=== PATIENT | male | born 1965 | race African-American/Black ===

== ENCOUNTER 2021-06-28 15:55 | Inpatient (IN) | payer OTHER ==
[2021-06-28 16:37] VITALS: BMI 23.0
[2021-06-29] MEDS ORDERED: DICYCLOMINE HCL 10 MG CAPSULE PO PRN (01:04)
[2021-06-29] MEDS ORDERED: ONDANSETRON *ODT* 4 MG TABLET SL PRN (01:04)
[2021-06-29] MEDS ORDERED: MAGNESIUM CITRATE 300 ML BOTTLE PO PRN (01:04)
[2021-06-29] MEDS ORDERED: LOPERAMIDE HCL 2 MG CAPSULE PO PRN (01:04)
[2021-06-29] MEDS ORDERED: ACETAMINOPHEN 325 MG TABLET (FP) PO PRN ×2 (01:04)
[2021-06-29] MEDS ORDERED: BISMUTH SUBSALICYLATE 524 MG/30 ML PO PRN (01:04)
[2021-06-29] MEDS ORDERED: MAGNESIUM HYDROX 2400MG/30ML ORAL SUSPENSION 30 ML CUP PO PRN (01:04)
[2021-06-29] MEDS ORDERED: BENZOCAINE/MENTHOL (CHLORASEPTIC ) LOZENGE MM PRN (01:04)
[2021-06-29] MEDS ORDERED: chlordiazePOXIDE HCL 25 MG CAPSULE PO PRN (01:07)
[2021-06-29] MEDS: chlordiazePOXIDE HCL 25 MG CAPSULE PO SCH ×4 (05:42→22:39)
[2021-06-29] MEDS: NICOTINE 21 MG/24 HOURS TOPICAL PATCH TD SCH (10:48)
[2021-06-29] MEDS: METHOCARBAMOL 500 MG TABLET PO PRN (10:48)
[2021-06-29] MEDS: PRENATAL VITAMINS W/ FOLIC ACID TABLET (FP) PO SCH (10:48)
[2021-06-29] MEDS: NICOTINE POLACRILEX 2 MG GUM BUC PRN (13:29)
[2021-06-29 17:12] LABS: HEMATOCRIT 43.7 % (35.4-49); HEMOGLOBIN 14.2 GM/dL (11.7-16.9); MCH 32.9 pg (25.7-33.7); MCHC 32.5 g/dl (32.0-35.9); MEAN CELL VOLUME 101.3 fl (80-96); MEAN PLT VOLUME 9.9 fl (7.5-11.1); PLATELET COUNT 107 10^3/uL (134-434); RBC 4.31 M/mm3 (4.00-5.60); WHITE BLOOD COUNT 6.8 K/mm3 (4.0-10.0)
[2021-06-29 17:20] LABS: CALCIUM 9.1 mg/dL (8.5-10.1)
[2021-06-29 17:21] LABS: ALBUMIN 3.5 g/dl (3.4-5.0); BLOOD UREA NITROGEN 4.4 mg/dL (7-18)
[2021-06-29 17:23] LABS: CREATININE 0.7 mg/dL (0.55-1.3)
[2021-06-29 17:25] LABS: BILIRUBIN,TOTAL 1.5 mg/dL (0.2-1)
[2021-06-29] MEDS: NICOTINE 10 MG CARTRIDGE (INHALER) IH PRN (17:44)
[2021-06-29] MEDS: THIAMINE HCL 100 MG TABLET (FP) PO SCH (22:38)
[2021-06-29] MEDS: MELATONIN 5 MG TABLETS PO SCH (22:38)
[2021-06-30] MEDS: chlordiazePOXIDE HCL 25 MG CAPSULE PO SCH ×2 (06:00→10:16)
[2021-06-30] MEDS: NICOTINE 10 MG CARTRIDGE (INHALER) IH PRN ×3 (09:34→22:17)
[2021-06-30] MEDS: PRENATAL VITAMINS W/ FOLIC ACID TABLET (FP) PO SCH (10:16)
[2021-06-30] MEDS: NICOTINE 21 MG/24 HOURS TOPICAL PATCH TD SCH (10:16)
[2021-06-30] MEDS: METHOCARBAMOL 500 MG TABLET PO PRN ×2 (10:17→22:38)
[2021-06-30] MEDS ORDERED: LORazepam 1 MG TABLET PO PRN (11:35)
[2021-06-30] MEDS: IBUPROFEN 400 MG TABLET (FP) PO PRN ×2 (12:47→22:38)
[2021-06-30] MEDS: LORazepam 2 MG TABLET PO SCH ×2 (17:35→22:15)
[2021-06-30] MEDS: NICOTINE POLACRILEX 2 MG GUM BUC PRN (17:53)
[2021-06-30] MEDS: THIAMINE HCL 100 MG TABLET (FP) PO SCH (22:14)
[2021-06-30] MEDS: MELATONIN 5 MG TABLETS PO SCH (22:14)
[2021-07-01] MEDS ORDERED: chlordiazePOXIDE HCL 10 MG CAPSULE PO PRN
[2021-07-01] MEDS ORDERED: chlordiazePOXIDE HCL 10 MG CAPSULE PO SCH (05:00)
[2021-07-01] MEDS: LORazepam 1 MG TABLET PO SCH ×4 (05:44→22:24)
[2021-07-01] MEDS: PRENATAL VITAMINS W/ FOLIC ACID TABLET (FP) PO SCH (10:44)
[2021-07-01] MEDS: NICOTINE 21 MG/24 HOURS TOPICAL PATCH TD SCH (10:44)
[2021-07-01] MEDS: METHOCARBAMOL 500 MG TABLET PO PRN (10:46)
[2021-07-01] MEDS: LACTULOSE 20 GM/30 ML UDC (FOR ORAL USE ONLY) PO SCH ×2 (12:41→20:20)
[2021-07-01 12:42] LABS: BILIRUBIN,DIRECT 0.2 mg/dL (0.0-0.2)
[2021-07-01] MEDS: NICOTINE 10 MG CARTRIDGE (INHALER) IH PRN ×2 (14:45→19:04)
[2021-07-01] MEDS: NICOTINE POLACRILEX 2 MG GUM BUC PRN (14:47)
[2021-07-01] MEDS: MAG HYDROX/AL HYDROX/SIMETH 30 ML UNIT-DOSE CUP PO PRN (19:04)
[2021-07-01] MEDS: MELATONIN 5 MG TABLETS PO SCH (22:24)
[2021-07-01] MEDS: THIAMINE HCL 100 MG TABLET (FP) PO SCH (22:24)
[2021-07-02] MEDS ORDERED: LORazepam 0.5 MG TABLET PO PRN
[2021-07-02 00:08] LABS: SARS-CoV-2 NAA Not Detected (Not Detected)
[2021-07-02] MEDS ORDERED: chlordiazePOXIDE HCL 10 MG CAPSULE PO SCH (05:00)
[2021-07-02] MEDS: LACTULOSE 20 GM/30 ML UDC (FOR ORAL USE ONLY) PO SCH ×3 (06:20→11:42)
[2021-07-02] MEDS: LORazepam 0.5 MG TABLET PO SCH ×2 (06:21→10:01)
[2021-07-02] MEDS: NICOTINE 10 MG CARTRIDGE (INHALER) IH PRN ×2 (06:26→10:01)
[2021-07-02] MEDS: MAG HYDROX/AL HYDROX/SIMETH 30 ML UNIT-DOSE CUP PO PRN (09:18)
[2021-07-02 09:19] VITALS: BP 145/86; PULSE 67; TEMP 98.1
[2021-07-02] MEDS: NICOTINE 21 MG/24 HOURS TOPICAL PATCH TD SCH (09:19)
[2021-07-02] MEDS: PRENATAL VITAMINS W/ FOLIC ACID TABLET (FP) PO SCH (10:00)
[2021-07-02] MEDS: METHOCARBAMOL 500 MG TABLET PO PRN (10:01)
[2021-07-03] MEDS ORDERED: LORazepam 0.5 MG TABLET PO ONE (05:00)
[2021-07-03] MEDS ORDERED: chlordiazePOXIDE HCL 10 MG CAPSULE PO ONE (05:00)
== END 2021-07-02 11:30 | disposition home or self-care (01) | DRG 775 ==
LOC: YASAS 15:55 → Y6N 06-29 01:14
PROVIDERS: ADMIT Allergy & Immunology; ATTEND Allergy & Immunology
PROC: HZ2ZZZZ Detoxification Services for Substance Abuse Treatment (ICD-10-PCS; principal; 2021-06-29)
DX: F10.230 Alcohol dependence with withdrawal, uncomplicated (principal); F17.210 Nicotine dependence, cigarettes, uncomplicated; I10 Essential (primary) hypertension; M19.071 Primary osteoarthritis, right ankle and foot; M19.072 Primary osteoarthritis, left ankle and foot; R74.01 Elevation of levels of liver transaminase levels; R79.89 Other specified abnormal findings of blood chemistry
CPT/HCPCS: 36415; 80053; 82140; 82248; 84450; 85027; 86780; 86803; 93005; 93010; C9803-CS; U0003; U0005